=== PATIENT | female | born 1980 | race Two or more races ===

== ENCOUNTER 2023-12-22 01:59 | Inpatient (IN) | payer OTHER, MEDICAID ==
[~2023-12-22] VITALS: Ht 165.1 cm; Wt 72.3 kg
[2023-12-22] MEDS ORDERED: IPRATROPIUM BROM 0.5 MG/2.5ML INH SOL HHN ONE (02:15)
[2023-12-22] MEDS ORDERED: ALBUTEROL SULF 2.5 MG/0.5ML(0.5%) NEB SOLN HHN ONE (02:15)
[2023-12-22 02:28] LABS: Basophils # (auto) 0 10 ^3/uL (0-0.2); Basophils % (auto) 0.2 % (0.0-2.0); Eosinophils # (auto) 0 10 ^3/uL (0-0.8); Eosinophils % (auto) 0.7 % (0.0-7.0); Hemoglobin 13.5 g/dL (12.2-16.2); Lymphocytes # (auto) 1.2 10 ^3/uL (0.4-5.4); Lymphocytes % (auto) 22.2 % (10.0-50.0); Mean Corpuscular Hgb Conc. 33.7 g/dL (32.0-36.0); Mean Corpuscular Volume 92.1 fL (80.0-100.0); Monocytes # (auto) 0.3 10 ^3/uL (0-1.3); Monocytes % (auto) 5.7 % (0.0-12.0); Neutrophils # (auto) 3.7 10 ^3/uL (1.6-8.6); Neutrophils % (auto) 71.2 % (37.0-80.0); Nucleated Red Blood Cells % 0.1 %; Platelet Count (auto) 355 10^3/uL (140-450); Red Blood Cells 4.34 10^6/uL (4.0-5.20); Red Cell Distribution Width 14.1 % (11.8-14.3); White Blood Cell 5.2 10^3/uL (4.4-10.8)
[2023-12-22 02:30] VITALS: PULSE 160; RESP 18; O2SAT 98
[2023-12-22] MEDS: ADENOSINE 6 MG/2 ML INJ IV ONE ×2 (02:34→02:41)
[2023-12-22 02:36] LABS: Chloride 109 mmol/L (98-107); Potassium 4.2 mmol/L (3.5-5.1); Sodium 138 mmol/L (136-145)
[2023-12-22 02:37] LABS: Anion Gap 5 (5-15); Calcium 9.4 mg/dL (8.7-10.4); Carbon Dioxide 24 mmol/L (20-30)
[2023-12-22 02:42] LABS: Blood Urea Nitrogen 10 mg/dL (9-23); Glucose 117 mg/dL (74-106)
[2023-12-22] MEDS: AMIODARONE BOLUS KIT 100 ML IV ONE ×2 (02:57→02:59)
[2023-12-22] MEDS: AMIODARONE 450mg/250ml AE 250 ML IV SCH ×2 (03:01→10:41)
[2023-12-22 03:44] LABS: Urine Bacteria None Seen /hpf (None Seen)
[2023-12-22] MEDS: METOPROLOL TARTRATE 1MG/1ML-5ML VIAL IV ONE (03:45)
[2023-12-22 04:13] LABS: Urine Blood Negative /uL (Negative); Urine Clarity Clear (Clear); Urine Color Colorless (Yellow); Urine Protein, UAD Negative (Negative); Urine Specific Gravity 1.003 (1.001-1.035); Urine Urobilinogen Normal (Negative); Urine WBC <1 /hpf (0 - 5)
[2023-12-22 07:43] VITALS: PULSE 80; RESP 18; O2SAT 96
[2023-12-22] MEDS ORDERED: ONDANSETRON HCL 4 MG/2 ML VIAL IV PRN (11:00)
[2023-12-22] MEDS: SODIUM CHLORIDE 0.9% 1,000 ML IV SCH (11:00)
[2023-12-22] MEDS ORDERED: DOCUSATE SOD 100 MG CAP PO PRN (11:00)
[2023-12-22] MEDS ORDERED: MORPHINE SULFATE INJ 2 MG/ml SYRG IV PRN (11:00)
[2023-12-22] MEDS ORDERED: NITROGLYCERIN 0.4 MG SL TAB SL PRN (11:00)
[2023-12-22 11:51] LABS: Phosphorus 3.5 mg/dL (2.4-5.1)
[2023-12-22] MEDS: METOPROLOL SUCCINATE XL 50 MG TAB PO ONE ×2 (12:34→14:32)
[2023-12-22 12:37] LABS: Amphetamine Screen, Urine Neg (NEGATIVE); Barbiturate Scree,Urine Neg (NEGATIVE); Benzodiazephine Screen, Urine Neg (NEGATIVE); Cannabinoid Screen, Urine Neg (NEGATIVE); Cocaine Screen, Urine Neg (NEGATIVE); Opiate Scree,Urine Neg (NEGATIVE); Phencyclidine Screen, Urine Neg (NEGATIVE)
[2023-12-22] MEDS: MAGNESIUM OXIDE 400 MG TAB PO ONE (14:32)
[2023-12-22 18:12] VITALS: BP 116/72; PULSE 70; RESP 20; TEMP 98.3; O2SAT 96
[2023-12-22 19:00] VITALS: BP 116/72; PULSE 70; RESP 20; TEMP 98.5; O2SAT 96
[2023-12-22 20:00] VITALS: PULSE 61; PULSE 75; RESP 17; O2SAT 96
[2023-12-22 21:00] VITALS: BP 107/63; PULSE 61; RESP 17; TEMP 98.2; O2SAT 96
[2023-12-23 01:00] VITALS: BP 121/64; PULSE 78; RESP 17; TEMP 97.9; O2SAT 95
[2023-12-23 05:00] VITALS: BP 106/70; PULSE 69; RESP 16; TEMP 98; O2SAT 96
[2023-12-23 07:11] LABS: Alanine Aminotransferase 12 U/L (7-40); Albumin 3.6 g/dL (3.2-4.8); Alkaline Phosphatase 91 U/L (46-116); Anion Gap 7 (5-15); Aspartate Aminotransferase 11 U/L (13-40); BUN/Creatinine Ratio 11.6 (10.0-20.0); Blood Urea Nitrogen 8 mg/dL (9-23); Carbon Dioxide 21 mmol/L (20-30); Chloride 110 mmol/L (98-107); Glucose 91 mg/dL (74-106); Magnesium 2.1 mg/dL (1.6-2.6); Potassium 4.2 mmol/L (3.5-5.1); Sodium 138 mmol/L (136-145)
[2023-12-23 07:12] LABS: Bilirubin, Total 0.4 mg/dL (0.2-1.0); Total Protein 6.7 g/dL (5.7-8.2)
[2023-12-23 07:40] LABS: Basophils # (auto) 0 10 ^3/uL (0-0.2); Basophils % (auto) 0.2 % (0.0-2.0); Eosinophils # (auto) 0.1 10 ^3/uL (0-0.8); Eosinophils % (auto) 1.7 % (0.0-7.0); Hematocrit 35.6 % (36.0-46.0); Hemoglobin 12.1 g/dL (12.2-16.2); Lymphocytes # (auto) 0.4 10 ^3/uL (0.4-5.4); Lymphocytes % (auto) 12.6 % (10.0-50.0); Mean Corpuscular Hemoglobin 31.9 pg (28.0-32.0); Mean Corpuscular Hgb Conc. 34.1 g/dL (32.0-36.0); Mean Corpuscular Volume 93.5 fL (80.0-100.0); Monocytes # (auto) 0.2 10 ^3/uL (0-1.3); Monocytes % (auto) 6.3 % (0.0-12.0); Neutrophils # (auto) 2.8 10 ^3/uL (1.6-8.6); Neutrophils % (auto) 79.2 % (37.0-80.0); Nucleated Red Blood Cells % 0.2 %; Platelet Count (auto) 296 10^3/uL (140-450); Red Blood Cells 3.81 10^6/uL (4.0-5.20); Red Cell Distribution Width 14.2 % (11.8-14.3); White Blood Cell 3.5 10^3/uL (4.4-10.8)
[2023-12-23 08:00] VITALS: PULSE 69; PULSE 73; RESP 16; O2SAT 100
[2023-12-23 08:58] VITALS: BP 126/81; PULSE 69; RESP 16; TEMP 98.2; O2SAT 100
[2023-12-23] MEDS: MAGNESIUM OXIDE 400 MG TAB PO SCH (11:00)
[2023-12-23] MEDS: METOPROLOL SUCCINATE XL 50 MG TAB PO SCH (11:00)
[2023-12-23] MEDS ORDERED: MAGN1TAB29 PO (11:59)
[2023-12-23] MEDS ORDERED: METO-6 PO (11:59)
[2023-12-23 12:41] VITALS: BP 114/72; PULSE 71; RESP 16; TEMP 98.2; O2SAT 94
[2023-12-23 12:43] VITALS: BP 126/81; PULSE 69; RESP 16; TEMP 98.2; O2SAT 100
== END 2023-12-23 13:33 | disposition home or self-care (01) | DRG 310 ==
LOC: ER 01:59 → TELE 11:00 → TELE-WESTW 17:56
PROVIDERS: ADMIT Internal Medicine; ATTEND Internal Medicine
DX: I47.10 Supraventricular tachycardia, unspecified (principal); M06.9 Rheumatoid arthritis, unspecified; E66.3 Overweight; Z98.891 History of uterine scar from previous surgery; Z68.26 Body mass index [BMI] 26.0-26.9, adult
CPT/HCPCS: 36415; 71045; 80048; 80053; 80307; 81001; 83735; 84100; 84443; 84484; 85025; 93005; 93306; 99291; G0378; J0153